=== PATIENT | female | born 1990 | race Two or more races ===

== ENCOUNTER 2024-03-09 14:21 | Inpatient (IN) | payer MEDICAID, OTHER ==
[~2024-03-09] VITALS: Ht 149.9 cm; Wt 70.0 kg
--- NOTE | 2024-03-09 14:55 | ED.PDOC ---
GI ASSESSMENT HPI Comments HPI: Poor Historian. 33 y.o female presents to the ED for a chief complaint of rectal pain associated with bleeding that started 3 days ago. Patient reports bleeding presented intermittently and mild but states today there was more blood output when using the restroom. Patient described pain as a burning sensation, states it worsens when applying pressure and is unable to sit down. Patient is unsure if she has a hemorrhoid. Denies any nausea, vomiting, diarrhea. Bowel movements have been normal and brown in coloration. Vital signs: BP: 121/75 HR: 79 Temp: SPO2: 100% RA RR: 16 Patient denies any allergies Past medical history: Gastritis Past surgical history: Endoscopy, and throat procedure REVIEW OF SYSTEMS: CONSTITUTIONAL: Denies acute: fever, diaphoresis, chills, generalized weakness. HEAD: Denies acute: headache, photophobia Eyes: Denies acute: Double vision, vision loss, eye pain, eye discharge. EARS: Denies acute: tinnitus, hearing loss, ear discharge, ear pain, THROAT: Denies acute: sore throat, swelling, difficulty swallowing , pain with swallowing, change in voice. NECK: Denies acute: neck pain, neck swelling, stiff neck. HEART: Denies acute : chest pain, palpitations, LUNGS: Denies acute: SOB, wheezing, cough, hemoptysis ABDOMEN: Denies acute: abdominal pain, Nausea, Vomiting, diarrhea, melena , hematemesis, SKIN: Denies acute: rash, redness, lesions, itchiness. EXTREMITIES: Denies acute: calf pain, numbness, tingling, weakness, denies pain in extremity. Denies acute: Low back pain. Neuro: Denies acute: focal neurological deficit, motor or sensory focal neurological deficit, tremors, seizure like activity, confusion, dizziness, change in mental status, loss of bowel or bladder function, cauda equina like symptoms. : Denies acute: dysuria, hematuria, flank pain, increase in urinary frequency. PSYCH: Denies acute: hallucination, suicidal ideation, homicidal ideation. FEMALE: Denies acute: abnormal vaginal bleeding, foul odor, unusual discharge. PHYSICAL EXAM: General: no acute distress, awake and alert. Head: normocephalic, atraumatic. Neck: supple, trachea is midline, no swelling. Throat: Normal phonation. Eyes:, no erythema, no purulent discharge, no proptosis, no icterus. Heart: regular rate, regular rhythm, no significant murmur appreciated. Lungs: no apparent respiratory distress, Able to speak in full sentences. No wheezing, no rhonchi, no crackles. No stridors Clear to auscultation bilaterally. Abdomen: non tender to palpation, non distended, soft, no guarding, no rebound, + bowel sounds. External inspection of the rectum/anus in the presence of a coal trammer nurse Aida: No apparent external hemorrhoids, no fissures appreciated, no erythema, no swelling. Palpation of the anal ring is tender to palpation. Neuro: Awake, Alert, oriented to name, self, situation, follows commands GCS=15. Speech is normal. Skin: no petechia, no purpura, no cyanosis, non-pale, not jaundice. Lower extremities: --no - Pitting edema no deformity, no focal swelling, no calf TTP. Makes eye contact. moves all four extremities. Face: no apparent facial droop. No CVA tenderness to percussion bilaterally. Ambulating in the ED independently. Ears: Normal appearing TM b/l, Stroke: finger to nose cerebellar testing is intact. No pronator drift. Symmetrical lead burner apprentice muscle strength b/l PERRLA, EOM-I CN 2-12 are grossly intact, Pedal pulses are palpable. No nystagmus. No nuchal rigidity, Kernig's sign, Brudzinski's sign, no meningeal signs. Chief Complaint: Rectal Pain Time Seen by MD: 14:42 Reviewed Notes: Nurses Notes, Medications, Allergies Allergies: Coded Allergies: NO KNOWN ALLERGIES (Unverified , 03/09/24) Information Source: Patient Mode of Arrival: Ambulatory Timing: Days (3) Past Medical History Past Medical History (Other): gastritis Surgical History: Surgical History (Other): endoscopy ROCK LOADER History: No Pertinent ROCK LOADER History Family History Family History: Reviewed,noncontributory to illness Social History Smoker: Non-Smoker Alcohol: Denies ETOH Use Drugs: Denies Drug Use Lives In: Home Was a procedure done? Was a procedure done?: No GI differential Dx Differential Diagnosis: Gastritis/PUD, Esophageal Varicies, Other (Diverticulitis, colitis, fistula, neoplasm, hemorrhoids, anal fissures, constipation, Crohn's disease, ulcerative colitis) Other Differential Diagnosis hemorrhoids X-Ray, Labs, Meds, VS Vital Signs Date Time Temp Pulse Resp B/P (MAP) Pulse Ox O2 Delivery O2 Flow Rate FiO2 03/09/24 17:05 73 18 114/62 (79) 100 03/09/24 14:35 98.8 79 16 121/75 (90) 100 Lab Test 03/09/24 15:07 Range/Units White Blood Count 6.9 4.4-10.8 10^3/uL Red Blood Count 4.11 4.0-5.20 10^6/uL Hemoglobin 12.5 12.2-16.2 g/dL Hematocrit 36.6 36.0-46.0 % Mean Corpuscular Volume 88.9 80.0-100.0 fL Mean Corpuscular Hemoglobin 30.4 28.0-32.0 pg Mean Corpuscular Hemoglobin Concent 34.2 32.0-36.0 g/dL Red Cell Distribution Width 13.2 11.8-14.3 % Platelet Count 221 140-450 10^3/uL Mean Platelet Volume 10.1 6.9-10.8 fL Neutrophils (%) (Auto) 62.3 37.0-80.0 % Lymphocytes (%) (Auto) 28.3 10.0-50.0 % Monocytes (%) (Auto) 8.2 0.0-12.0 % Eosinophils (%) (Auto) 0.8 0.0-7.0 % Basophils (%) (Auto) 0.4 0.0-2.0 % Neutrophils # (Auto) 4.3 1.6-8.6 10 ^3/uL Lymphocytes # (Auto) 2.0 0.4-5.4 10 ^3/uL Monocytes # (Auto) 0.6 0-1.3 10 ^3/uL Eosinophils # (Auto) 0.1 0-0.8 10 ^3/uL Basophils # (Auto) 0 0-0.2 10 ^3/uL Nucleated Red Blood Cells 0.1 % Sodium Level 137 136-145 mmol/L Potassium Level 3.7 3.5-5.1 mmol/L Chloride Level 105 98-107 mmol/L Carbon Dioxide Level 26 20-31 mmol/L Anion Gap 6 5-15 Blood Urea Nitrogen 9 9-23 mg/dL Creatinine 0.76 0.550-1.02 mg/dL Glomerular Filtration Rate Calc 105 >90 mL/min BUN/Creatinine Ratio 11.8 10.0-20.0 Serum Glucose 93 74-106 mg/dL Lactic Acid Level 1.3 0.4-2.0 mmol/L Calcium Level 9.1 8.7-10.4 mg/dL Total Bilirubin 0.7 0.2-1.0 mg/dL Aspartate Amino Transferase (AST) 16 13-40 U/L Alanine Aminotransferase (ALT) 26 7-40 U/L Alkaline Phosphatase 96 46-116 U/L C-Reactive Protein High Sensitivity 0.50 <1.0 mg/dL Total Protein 7.7 5.7-8.2 g/dL Albumin 4.5 3.2-4.8 g/dL Lipase 40 12-53 U/L Beta HCG, Quantitative < 0.0 L 1.5-4.2 mIU/mL [place] [id number] Ph: [phone] DIAGNOSTIC IMAGING Diagnostic Imaging Report : [id number] Signed PATIENT: JW VALENZUELA ACCT: [id number] UNIT: [id number] : 1990 LOC: ER ROOM / BED: / AGE / SEX: 33 / F ADM STATUS: REG ER SERVICE 1453 ORDERING PHYSICIAN: OLGA LIDIA FELICIANO DO PROCEDURE(s): ABPLIV - CT AB PEL WITH IV CON ONLY REASON: rectal pain,bleed ORDER NUMBER(s): [id number], ACCESSION NUMBER(s): [id number] CT OF THE ABDOMEN AND PELVIS WITH CONTRAST. HISTORY: rectal pain,bleed COMPARISON: At the time of this review, no prior studies are available for comparison. TECHNIQUE: Helical axial CT images of the abdomen and pelvis were obtained with intravenous contrast. Multiplanar reformats. One or more of the following radiation dose reduction techniques were used for this examination: automated exposure control, adjustment of the mA and/or kV according to patient size, use of iterative reconstruction technique. FINDINGS: Imaged lung bases are grossly clear. Liver: No discrete hepatic lesions identified. Gallbladder and biliary system: No sizable, radiopaque cholelithiasis or biliary ductal dilatation. Pancreas: Negative. Spleen: Negative. Adrenal Glands: Negative. Kidneys and collecting system: No hydroureteronephrosis. Retroperitoneum: No evidence of abdominal aortic aneurysm. Lymph nodes: No discretely enlarged lymph nodes identified. Bowel: No evidence of small-bowel obstruction. Normal caliber appendix. No free intraperitoneal air identified. Hyperdense noted within the anorectal canal. Stool noted throughout the colon and rectum suggesting constipation. Pelvis: Approximately 2 cm crenulated right adnexal cystic structure may represent a corpus luteal cyst. Questionable thickening versus underdistention of the urinary bladder. Osseous structures: No destructive osseous lesions identified. IMPRESSION: Hyperdense material noted within the anorectal canal. This may reflect pooled blood products or possible hemorrhoidal bleeding. Recommend further workup as clinically indicated. Probable right ovarian corpus luteal cyst. This can be further evaluated with ultrasound. Questionable thickening versus underdistention of the urinary bladder. Please correlate to exclude cystitis. Stool noted throughout the colon and rectum suggesting constipation. ATED BY: BENI CORDOBA MD DICTATED DATE/TIME: 03/09/241922 SIGNED BY: BENI CORDOBA MD SIGNED DATE/TIME: 03/09/241922 CC: Time of 1ST Reevaluation: 14:50 Reevaluation 1ST: Unchanged Patient Education/Counseling: Diagnosis, Treatment Family Education/Counseling: No Family Present Comments Patient presented with the above HPI.---rectal bleeding---workup was initiated. patient was found with the above mentioned diagnosis. Patient ED course and VS have been stabilized. Patient has been reassessed in the ED and remained in a stable condition. Pertinent incidental findings were discussed with the patient and/or family. Patient/family voices understanding and is agreeable with plan. Patient has been observed in the ED adequate length of time to insure improvement/stability. patient was admitted to the medicine team for further evaluation and treatment of their presentation. All the reports of any imaging studies that were ordered by myself were reviewed by myself. Departure 1 Departure Time of Disposition: 18:07 Impression: Primary Impression: Rectal or anal pain Additional Impressions: Rectal bleeding Hemorrhoids Disposition: ADMITTED INPATIENT Admit to: Tele Condition: Guarded Discharged With: Self Critical Care Note Critical Care Time?: No I personally scribed for OLGA LIDIA FELICIANO DO ([email or web address]) on 03/09/24 at 14:55. Electronically submitted by Sandra Steve ([facility]). I personally scribed for OLGA LIDIA FELICIANO DO ([email or web address]) on 03/09/24 at 19:51. Electronically submitted by Sandra Steve ([facility]). OLGA LIDIA FELICIANO DO Mar 09, 2024 14:55
[2024-03-09 15:57] LABS: Basophils # (auto) 0 10 ^3/uL (0-0.2); Basophils % (auto) 0.4 % (0.0-2.0); Eosinophils # (auto) 0.1 10 ^3/uL (0-0.8); Eosinophils % (auto) 0.8 % (0.0-7.0); Hematocrit 36.6 % (36.0-46.0); Hemoglobin 12.5 g/dL (12.2-16.2); Lymphocytes % (auto) 28.3 % (10.0-50.0); Mean Corpuscular Hemoglobin 30.4 pg (28.0-32.0); Mean Corpuscular Hgb Conc. 34.2 g/dL (32.0-36.0); Mean Corpuscular Volume 88.9 fL (80.0-100.0); Monocytes # (auto) 0.6 10 ^3/uL (0-1.3); Monocytes % (auto) 8.2 % (0.0-12.0); Neutrophils # (auto) 4.3 10 ^3/uL (1.6-8.6); Neutrophils % (auto) 62.3 % (37.0-80.0); Nucleated Red Blood Cells % 0.1 %; Platelet Count (auto) 221 10^3/uL (140-450); Red Blood Cells 4.11 10^6/uL (4.0-5.20); Red Cell Distribution Width 13.2 % (11.8-14.3); White Blood Cell 6.9 10^3/uL (4.4-10.8)
[2024-03-09 16:15] LABS: Alanine Aminotransferase 26 U/L (7-40); Alkaline Phosphatase 96 U/L (46-116); Anion Gap 6 (5-15); BUN/Creatinine Ratio 11.8 (10.0-20.0); Blood Urea Nitrogen 9 mg/dL (9-23); Calcium 9.1 mg/dL (8.7-10.4); Carbon Dioxide 26 mmol/L (20-31); Chloride 105 mmol/L (98-107); Glucose 93 mg/dL (74-106); Potassium 3.7 mmol/L (3.5-5.1); Sodium 137 mmol/L (136-145)
[2024-03-09 16:16] LABS: Albumin 4.5 g/dL (3.2-4.8); Aspartate Aminotransferase 16 U/L (13-40); Bilirubin, Total 0.7 mg/dL (0.2-1.0); Total Protein 7.7 g/dL (5.7-8.2)
[2024-03-09 16:30] LABS: Lipase 40 U/L (12-53)
[2024-03-09] MEDS: IOHEXOL 300 MG/ML 100ML BOTTLE IJ ONE (18:10)
--- NOTE | 2024-03-09 19:26 | DVH ---
CT OF THE ABDOMEN AND PELVIS WITH CONTRAST. HISTORY: rectal pain,bleed COMPARISON: At the time of this review, no prior studies are available for comparison. TECHNIQUE: Helical axial CT images of the abdomen and pelvis were obtained with intravenous contrast. Multiplanar reformats. One or more of the following radiation dose reduction techniques were used fo r this examination: automated exposure control, adjustment of the mA and/or kV according to patient s ize, use of iterative reconstruction technique. FINDINGS: Imaged lung bases are grossly clear. Liver: No discrete hepatic lesions identified. Gallbladder and biliary system: No sizable, radiopaque cholelithiasis or biliary ductal dilatation. Pancreas: Negative. Spleen: Negative. Adrenal Glands: Negative. Kidneys and collecting system: No hydroureteronephrosis. Retroperitoneum: No evidence of abdominal aortic aneurysm. Lymph nodes: No discretely enlarged lymph nodes identified. Bowel: No evidence of small-bowel obstruction. Normal caliber appendix. No free intraperitoneal air i dentified. Hyperdense noted within the anorectal canal. Stool noted throughout the colon and rectum s uggesting constipation. Pelvis: Approximately 2 cm crenulated right adnexal cystic structure may represent a corpus luteal cy st. Questionable thickening versus underdistention of the urinary bladder. Osseous structures: No destructive osseous lesions identified. IMPRESSION: Hyperdense material noted within the anorectal canal. This may reflect pooled blood products or poss ible hemorrhoidal bleeding. Recommend further workup as clinically indicated. Probable right ovarian corpus luteal cyst. This can be further evaluated with ultrasound. Questionable thickening versus underdistention of the urinary bladder. Please correlate to exclude cy stitis. Stool noted throughout the colon and rectum suggesting constipation.
[2024-03-09] MEDS ORDERED: MORPHINE SULFATE INJ 2 MG/ml SYRG IV PRN ×2 (20:30)
[2024-03-09] MEDS ORDERED: NITROGLYCERIN 0.4 MG SL TAB SL PRN (20:30)
[2024-03-09] MEDS ORDERED: ONDANSETRON HCL 4 MG/2 ML VIAL IV PRN (20:30)
[2024-03-09] MEDS ORDERED: ACETAMINOPHEN 325 MG TAB PO PRN (20:30)
[2024-03-09 20:51] LABS: Basophils # (auto) 0 10 ^3/uL (0-0.2); Basophils % (auto) 0.5 % (0.0-2.0); Eosinophils # (auto) 0.1 10 ^3/uL (0-0.8); Eosinophils % (auto) 0.8 % (0.0-7.0); Hematocrit 40.4 % (36.0-46.0); Hemoglobin 13.8 g/dL (12.2-16.2); Lymphocytes # (auto) 2.4 10 ^3/uL (0.4-5.4); Lymphocytes % (auto) 33.3 % (10.0-50.0); Mean Corpuscular Hemoglobin 30.4 pg (28.0-32.0); Mean Corpuscular Hgb Conc. 34.2 g/dL (32.0-36.0); Mean Corpuscular Volume 88.7 fL (80.0-100.0); Monocytes # (auto) 0.5 10 ^3/uL (0-1.3); Monocytes % (auto) 7.5 % (0.0-12.0); Neutrophils # (auto) 4.1 10 ^3/uL (1.6-8.6); Neutrophils % (auto) 57.9 % (37.0-80.0); Nucleated Red Blood Cells % 0.1 %; Platelet Count (auto) 216 10^3/uL (140-450); Red Blood Cells 4.55 10^6/uL (4.0-5.20); Red Cell Distribution Width 13.4 % (11.8-14.3); White Blood Cell 7.1 10^3/uL (4.4-10.8)
[2024-03-09 21:12] LABS: Alanine Aminotransferase 26 U/L (7-40); Albumin 4.9 g/dL (3.2-4.8); Alkaline Phosphatase 103 U/L (46-116); Anion Gap 5 (5-15); Aspartate Aminotransferase 18 U/L (13-40); BUN/Creatinine Ratio 11.4 (10.0-20.0); Bilirubin, Total 0.9 mg/dL (0.2-1.0); Blood Urea Nitrogen 8 mg/dL (9-23); Calcium 9.3 mg/dL (8.7-10.4); Carbon Dioxide 24 mmol/L (20-31); Chloride 106 mmol/L (98-107); Glucose 84 mg/dL (74-106); Potassium 3.6 mmol/L (3.5-5.1); Sodium 135 mmol/L (136-145)
[2024-03-09 21:13] LABS: Total Protein 7.8 g/dL (5.7-8.2)
[2024-03-09] MEDS: SODIUM CHLOR 0.9% PF (SALINE LOCK) 10ML VIAL/SYR IV SCH (22:08)
--- NOTE | 2024-03-09 22:41 | DVHHPRES ---
History of Present Illness Resident Creating Document: CLARICE CHAVARRIA RESIDENT History of Present Illness JW VALENZUELA is a 33 years old female with a PMH of cholelithiasis, gastritis presented to the ED with the chief complaints of rectal pain and rectal bleeding since 1 week prior to admission. Patient reported she has been having burning rectal pain while defecating associated with fresh red blood in stools , unable to sit, worsened when applying pressure. On my assessment patient denies nausea, vomiting, abdominal pain, diarrhea, fever, chills, and other associated symptoms Past Medical History Gastritis and cholelithiasis Past Surgical History Endoscopic, 2, throat procedure Family History: None Past Social History Lives with the . Occasional alcohol abuse but denies smoking and other drug abuse Review of Systems Constitutional: No: Fever, Chills, Sweats, Weakness, Malaise, Other Eyes: No: Pain, Vision change, Conjunctivae inflammation, Eyelid inflammation, Other, Redness ENT: No: Ear pain, Ear discharge, Nose pain, Nose discharge, Nose congestion, Mouth pain, Mouth swelling, Throat pain, Throat swelling, Other Respiratory: No: Cough, Dry, Shortness of breath, SOB with excertion, Wheezing, Hemoptysis, Pleuritic Pain, Sputum, Wheezing, Other Cardiovascular: No: Chest Pain, Palpitations, Orthopnea, Paroxysmal Noc. Dyspnea, Edema, Lt Headedness, Other Gastrointestinal: No: Nausea, Vomiting, Abdominal Pain, Diarrhea, Constipation, Melena, Hematochezia, Other Genitourinary: Other (Rectal bleeding and rectal pain) Musculoskeletal: No: other, neck pain, shoulder pain, arm pain, back pain, hand pain, leg pain, foot pain Skin: No: Rash, Lesions, Jaundice, Bruising, Other Neurological: No: Weakness, Numbness, Incoordination, Change in speech, Confusion, Seizures, Other Allergies: Coded Allergies: NO KNOWN ALLERGIES (Unverified , 03/09/24) Medications Current Medications Medications Dose Ordered Sig/Alize Route Start Time Stop Time Status Last Admin Dose Admin Sodium Chloride 10 ml Q8HR IV 03/09/24 22:00 03/09/24 22:08 10 ML Ondansetron HCl 4 mg Q4HP PRN IV 03/09/24 20:30 Acetaminophen 650 mg Q6HP PRN PO 03/09/24 20:30 Morphine Sulfate 2 mg Q4HPRN PRN IV 03/09/24 20:30 Nitroglycerin 0.4 mg Q5MINP PRN SL 03/09/24 20:30 Morphine Sulfate 2 mg Q30M PRN IV 03/09/24 20:30 Exam Vital Signs Vital Signs Date Time Temp Pulse Resp B/P (MAP) Pulse Ox O2 Delivery O2 Flow Rate FiO2 03/09/24 21:52 98.3 84 16 99/52 (68) 99 98.3 Exam Pt is lying on bed General Appearance: Alert, Oriented X3, Cooperative, Not in acute distress HEENT: Atraumatic, Mucous membranes moist/pink Respiratory: Clear to auscultation, Normal air movement, No added sounds Cardiovascular: Regular rate, Normal S1, Normal S2, No murmurs Abdominal: Active bowel sounds, Soft, no distention, no tenderness Extremities: No edema, Normal pulses, No tenderness/swelling Skin: No Significant rash, except past surgical scars Neuro: Normal speech, sensorimotor deficits none Psych/Mental Status: Mental status NL, Mood NL Nurse was there as tatine during examination Labs/Xrays Labs Test 03/09/24 20:37 03/09/24 15:07 Range/Units White Blood Count 7.1 4.4-10.8 10^3/uL Red Blood Count 4.55 4.0-5.20 10^6/uL Hemoglobin 13.8 12.2-16.2 g/dL Hematocrit 40.4 # 36.0-46.0 % Mean Corpuscular Volume 88.7 80.0-100.0 fL Mean Corpuscular Hemoglobin 30.4 28.0-32.0 pg Mean Corpuscular Hemoglobin Concent 34.2 32.0-36.0 g/dL Red Cell Distribution Width 13.4 11.8-14.3 % Platelet Count 216 140-450 10^3/uL Mean Platelet Volume 9.8 6.9-10.8 fL Neutrophils (%) (Auto) 57.9 37.0-80.0 % Lymphocytes (%) (Auto) 33.3 10.0-50.0 % Monocytes (%) (Auto) 7.5 0.0-12.0 % Eosinophils (%) (Auto) 0.8 0.0-7.0 % Basophils (%) (Auto) 0.5 0.0-2.0 % Neutrophils # (Auto) 4.1 1.6-8.6 10 ^3/uL Lymphocytes # (Auto) 2.4 0.4-5.4 10 ^3/uL Monocytes # (Auto) 0.5 0-1.3 10 ^3/uL Eosinophils # (Auto) 0.1 0-0.8 10 ^3/uL Basophils # (Auto) 0 0-0.2 10 ^3/uL Nucleated Red Blood Cells 0.1 % Sodium Level 135 L 136-145 mmol/L Potassium Level 3.6 3.5-5.1 mmol/L Chloride Level 106 98-107 mmol/L Carbon Dioxide Level 24 20-31 mmol/L Anion Gap 5 5-15 Blood Urea Nitrogen 8 L 9-23 mg/dL Creatinine 0.70 0.550-1.02 mg/dL Glomerular Filtration Rate Calc 116 >90 mL/min BUN/Creatinine Ratio 11.4 10.0-20.0 Serum Glucose 84 74-106 mg/dL Calcium Level 9.3 8.7-10.4 mg/dL Total Bilirubin 0.9 0.2-1.0 mg/dL Aspartate Amino Transferase (AST) 18 13-40 U/L Alanine Aminotransferase (ALT) 26 7-40 U/L Alkaline Phosphatase 103 46-116 U/L Total Protein 7.8 5.7-8.2 g/dL Albumin 4.9 H 3.2-4.8 g/dL Lactic Acid Level 1.3 0.4-2.0 mmol/L C-Reactive Protein High Sensitivity 0.50 <1.0 mg/dL Lipase 40 12-53 U/L Beta HCG, Quantitative < 0.0 L 1.5-4.2 mIU/mL Assessment/Plan Assessment/Plan # Acute lower GI bleed # hematochezia likely annual fissure versus hemorrhoids # constipation -CT abdominal pelvis showed findings suggestive of possible hemorrhoidal bleeding -patient was counseled regarding dietary modifications -monitor lab for anemia -consider GI sales representative consultant evaluation -ordered lidocaine ointment and Colace # gastritis -Protonix No VTE PPX as patient is ambulatory Protonix High fibre diet Goals of care discussed with the patient for more than 27 minutes: Full code status Case management discussed with Dr. Osorio, patient's nurse Plan discussed with: Patient My Orders Orders - CLARICE CHAVARRIA RESIDENT Procedure Category Date Status Time Admit ADMIT 03/09/24 Transmitted 20:22 Allergies JUDD 03/09/24 In Process 20:22 Code Status CODE 03/09/24 Transmitted 20:22 Sodium Chloride Lock PHA 03/09/24 In Process (Saline Lock Ns) 22:00 Ondansetron Hcl PHA 03/09/24 In Process (Zofran) 20:30 Complete Blood Count LAB 03/10/24 Verified 04:00 Comprehensive LAB 03/10/24 Verified Metabolic Panel 04:00 Acetaminophen Tablet PHA 03/09/24 In Process (Tylenol Tablet) 20:30 Clear Liq Diet DIET 03/10/24 Transmitted Breakfast Morphine Sulfate PHA 03/09/24 In Process Injection 20:30 Nitroglycerin PHA 03/09/24 In Process Sublingual (Ntrostat 20:30 Morphine Sulfate PHA 03/09/24 In Process Injection 20:30 Oxygen By Nasal RT 03/09/24 Transmitted Cannula 20:22 Stat Ekg For Chest JUDD 03/09/24 In Process Pain 20:22 Notify Of Changes [facility] 03/09/24 In Process From Base 20:22 Driver Starting Gate For [facility] 03/09/24 In Process 24 Hours 20:22 Emergency Dysrhythmia [facility] 03/09/24 In Process Protocol 20:22 Rhythm Strips Once [facility] 03/09/24 In Process Every Shift 20:22 Iron Panel LAB 03/09/24 Logged 22:31 Hemoglobin A1c LAB 03/09/24 Logged 22:31 Drug Screen LAB 03/09/24 Logged 22:31 Vitamin D, 25-Hydroxy LAB 03/09/24 Logged 22:31 Vitamin B12 LAB 03/09/24 Logged 22:31 Thyroid Stimulating LAB 03/09/24 In Process Hormone 22:31 Stool Occult Blood LAB 03/10/24 Verified 04:00 PTPTT LAB 03/10/24 Verified 04:00 CLARICE CHAVARRIA RESIDENT Mar 09, 2024 22:41
[2024-03-09] MEDS ORDERED: DOCUSATE SOD 100 MG CAP PO PRN (22:45)
[2024-03-09] MEDS: LIDOCAINE HCL 5 % TOP OINT 35 GM TOP ONE (22:45)
[2024-03-09 22:52] LABS: % Iron Saturation 16.7 % (15-50)
[2024-03-09] MEDS: PANTOPRAZOLE 40 MG/10 ML VIAL INJ IV ONE (23:30)
[2024-03-09 23:43] VITALS: BP 106/60; PULSE 91; RESP 18; TEMP 106; O2SAT 99
[2024-03-10] VITALS (8 sets, daily range): BP systolic 94–109; BP diastolic 44–68; PULSE 68–78; RESP 16–18; TEMP 97.9–99.1; O2SAT 97–99
[2024-03-10 03:13] LABS: Urine Bacteria FEW /hpf (None Seen); Urine Blood Negative /uL (Negative); Urine Clarity Clear (Clear); Urine Color Light-Yellow (Yellow); Urine Mucus FEW (None Seen); Urine Protein, UAD TRACE (Negative); Urine Urobilinogen Normal (Negative); Urine WBC <1 /hpf (0 - 5); Urine pH 5.5 (5.0-9.0)
[2024-03-10 03:14] LABS: Amphetamine Screen, Urine Neg (NEGATIVE); Barbiturate Scree,Urine Neg (NEGATIVE); Benzodiazephine Screen, Urine Neg (NEGATIVE); Cocaine Screen, Urine Neg (NEGATIVE); Opiate Scree,Urine Neg (NEGATIVE); Phencyclidine Screen, Urine Neg (NEGATIVE)
[2024-03-10 03:15] LABS: Cannabinoid Screen, Urine Neg (NEGATIVE)
[2024-03-10 03:16] LABS: Urine Specific Gravity 1.035 (1.001-1.035)
[2024-03-10] MEDS: POLYETHYLENE GLYCOL 17 GM PWDR PO ONE (05:42)
[2024-03-10] MEDS ORDERED: LIDOCAINE HCL 5 % TOP OINT 35 GM TOP PRN (07:00)
--- NOTE | 2024-03-10 10:04 | DVHPNRES ---
Progress Note Date Seen: Mar 10, 2024 Resident Creating Document: EDMAR ALLAN RESIDENT Medical Necessity Reason Pt with a Central, PICC or Fol: No Subjective Review of Systems This is a 33-year-old female patient with PMHx of gallbladder sludge, gastritis diagnosed 3 weeks back on endoscopy who presented to the ER with a chief complaint of rectal pain and rash bleeding per rectum for the past 1 week. Patient reports she has a long history of constipation for which she uses stool softeners, reports that over the past week she has been experiencing pain on defecation associated with fresh blood per rectum at the end of the stool. Says that the stool is not mixed with blood. Also reports a something comes out of the anus, but goes back on its own. She feels discomfort while sitting. Denies fever, chills, nausea, vomiting, diarrhea, abdominal pain, chest pain, shortness of breath, dysuria, frequency. Past surgical history Tubal ligation and a thyroid cyst removal in 2007 Social history Lives with and son Denies smoking, drinks socially, denies illicit drug use Patient seen and examined at bedside. Examination is unremarkable. No abdominal tenderness. Objective vital signs Vital Sign Date Time Temp Pulse Resp B/P (MAP) Pulse Ox O2 Delivery O2 Flow Rate FiO2 03/10/24 08:43 98.3 76 16 98/68 (78) 97 98.3 03/10/24 02:38 Room Air* 0 21 Total Intake and Output 03/09/24 03/09/24 03/10/24 15:00 23:00 07:00 Intake Total 50 ml Balance 50 ml medications Current Medications Medications Dose Ordered Sig/Alize Route Start Time Stop Time Status Last Admin Dose Admin Sodium Chloride 10 ml Q8HR IV 03/09/24 22:00 03/10/24 05:44 10 ML Ondansetron HCl 4 mg Q4HP PRN IV 03/09/24 20:30 Acetaminophen 650 mg Q6HP PRN PO 03/09/24 20:30 Morphine Sulfate 2 mg Q4HPRN PRN IV 03/09/24 20:30 Pantoprazole Sodium 40 mg DAILY IV 03/10/24 10:00 Docusate Sodium 100 mg BIDPRN PRN PO 03/09/24 22:45 Lidocaine HCl 1 applic Q8HP PRN TOP 03/10/24 07:00 Polyethylene Glycol 17 gm DAILY PO 03/10/24 10:00 Ergocalciferol 50,000 unit Q7D PO 03/10/24 07:45 Examination Young female patient lying in bed, in no acute distress General: Obese, afebrile, palor, mucosae are moist Cardiovascular: Regular S1 and S2. No murmurs, gallops or rubs. No JVD elevation. No pedal edema Respiratory: Normal B/L air entry on room air. Clear lung sounds on auscultation Abdomen: Soft, nontender, nondistended, normoactive bowel sounds, no rebound tenderness, no organomegaly, no masses Genitourinary: Deferred MSK/skin: Mobilizes 4 limbs. Skin is dry and warm Neurological: No motor, no sensitive deficits, normal speech. Pupils are isocoric and reactive. Psych/Mental Status: A/Ox4 laboratory and microbiology Laboratory Tests 03/09/24 20:37 Test 03/09/24 20:37 Range/Units Serum Glucose 84 74-106 mg/dL Labs and/or images reviewed: Labs reviewed by me, Image(s) reviewed by me Problem List/Assessment/Plan Problem List/Assessment/Plan Fresh red bleeding per rectum secondary to possible internal hemorrhoids Ruled out anal fissure Febrile episode secondary to above GI consulted - recommended Local anorectal hemorrhoidal care with Proctocream or Anusol HC rectal suppositories. Xylocaine 5% apply per rectum q.8 hours as needed as needed MiraLax 17 g p.o. as needed as needed History of gallbladder sludge Gastritis Continue pantoprazole 40 mg daily History of thyroid cyst removal TSH 1.7 Vitamin-D insufficiency Supplemented Diet Clear liquid Plan discussed with patient in which all questions have been answered Goals of care discussed with the patient for more than 20 minutes, full code status Case discussed with Dr. Osorio. Plan discussed with: Patient My Orders My Orders Orders - EDMAR ALLAN Procedure Category Date Status Time Ergocalciferol PHA 03/10/24 In Process (Vitamin D 50,000 07:45 Covid19 Antigen Adri LAB 03/10/24 Logged Potassium Effervesent PHA 03/10/24 Logged Tab (Klor-Con/Ef) 10:00 EDMAR ALLAN RESIDENT Mar 10, 2024 10:04
[2024-03-10] MEDS: POLYETHYLENE GLYCOL 17 GM PWDR PO SCH (10:23)
[2024-03-10] MEDS: PANTOPRAZOLE 40 MG/10 ML VIAL INJ IV SCH (10:23)
[2024-03-10] MEDS: ERGOCALCIFEROL 50,000 UNIT(1.25MG) CAP PO SCH (10:25)
[2024-03-10] MEDS: CYANOCOBALAMIN (B-12) 1000 MCG/1 ML VIAL IM ONE (10:25)
[2024-03-10] MEDS: SODIUM CHLORIDE 0.9% 500 ML IV ONE ×2 (10:26→10:30)
--- NOTE | 2024-03-10 10:44 | DVHINCON2 ---
Date of service: Mar 10, 2024 Referring Physician Dami Rosa Reason for Consultation Rectal bleeding and pain due to hemorrhoids History of Present Illness 3 years old female with a PMH of cholelithiasis, gastritis presented to the ED with the chief complaints of rectal pain and rectal bleeding since 1 week prior to admission. Patient reported she has been having burning rectal pain while defecating associated with fresh red blood in stools , unable to sit, worsened when applying pressure. On my assessment patient denies nausea, vomiting, abdominal pain, diarrhea, fever, chills, and other associated symptoms Past Medical History Past Medical History Gastritis and cholelithiasis Past Surgical History Past Surgical History Endoscopic, 2, throat procedure Family History: Diabetes mellitus G8 FATHER Allergies: Coded Allergies: NO KNOWN ALLERGIES (Unverified , 03/09/24) Current Medications Current Medications Medications (Trade) Dose Ordered Sig/Alize Route PRN Reason Start Time Stop Time Status Last Admin Sodium Chloride (Saline Lock Ns) 10 ml Q8HR IV 03/09/24 22:00 03/10/24 10:26 Ondansetron HCl (Zofran) 4 mg Q4HP PRN IV NAUSEA / VOMITING 03/09/24 20:30 Acetaminophen (Tylenol Tablet) 650 mg Q6HP PRN PO PAIN SCALE 1-3 OR TEMP>100.4 03/09/24 20:30 Morphine Sulfate 2 mg Q4HPRN PRN IV SEVERE PAIN (7-10 PAIN SCALE) 03/09/24 20:30 Nitroglycerin (Ntrostat Sublingual) 0.4 mg Q5MINP PRN SL FOR CHEST PAIN 03/09/24 20:30 03/10/24 09:58 DC Morphine Sulfate 2 mg Q30M PRN IV FOR CHEST PAIN 03/09/24 20:30 03/10/24 08:13 DC Pantoprazole Sodium (Protonix) 40 mg DAILY IV 03/10/24 10:00 03/10/24 10:23 Docusate Sodium (Colace Capsule) 100 mg BIDPRN PRN PO FOR CONSTIPATION 03/09/24 22:45 Lidocaine HCl (Xylocaine 5% Topical Ointment) 1 applic Q8HP PRN TOP PAIN SCALE 4-6 OR TEMP>100.4 03/10/24 07:00 Polyethylene Glycol (Miralax 17GM Powder) 17 gm DAILY PO 03/10/24 10:00 03/10/24 10:23 Ergocalciferol (Vitamin D 50,000 Unit) 50,000 unit Q7D PO 03/10/24 07:45 03/10/24 10:25 Vital Signs Vital Signs Date Time Temp Pulse Resp B/P (MAP) Pulse Ox O2 Delivery O2 Flow Rate FiO2 03/10/24 08:43 98.3 76 16 98/68 (78) 97 98.3 03/10/24 02:38 Room Air* 0 21 Physical Exam General Appearance: Alert, Oriented X3, Cooperative, Not in acute distress HEENT: Atraumatic, Mucous membranes moist/pink Respiratory: Clear to auscultation, Normal air movement, No added sounds Cardiovascular: Regular rate, Normal S1, Normal S2, No murmurs Abdominal: Active bowel sounds, Soft, no distention, no tenderness Extremities: No edema, Normal pulses, No tenderness/swelling Skin: No Significant rash, except past surgical scars Neuro: Normal speech, sensorimotor deficits none Psych/Mental Status: Mental status NL, Mood NL Nurse was there as sharperone during examination Labs/Diagnostic Data Labs Test 03/10/24 07:00 03/10/24 02:40 03/09/24 20:37 03/09/24 15:07 Range/Units Stool Occult Blood Negative Negative Stool Occult Blood Sample #3 Negative Urine Color Light-yellow Yellow Urine Clarity Clear Clear Urine pH 5.5 5.0-9.0 Urine Specific [place] 1.035 1.001-1.035 Urine Protein Trace H Negative Urine Ketones Trace Negative Urine Blood Negative Negative /uL Urine Nitrite Negative Negative Urine Bilirubin Negative Negative Urine Urobilinogen Normal Negative mg/dL Urine Leukocyte Esterase Negative Negative /uL Urine RBC 2 0 - 4 /hpf Urine WBC <1 0 - 5 /hpf Urine Squamous Epithelial Cells Few <5 /hpf Urine Bacteria Few H None Seen /hpf Urine Mucus Few None Seen Urine Glucose Normal Normal mg/dL Urine Opiates Screen Neg NEGATIVE Urine Fentanyl Screen Neg NEGATIVE Urine Barbiturates Screen Neg NEGATIVE Urine Phencyclidine Screen Neg NEGATIVE Urine Amphetamines Screen Neg NEGATIVE Urine Benzodiazepines Screen Neg NEGATIVE Urine Cocaine Screen Neg NEGATIVE Urine Cannabinoids Screen Neg NEGATIVE White Blood Count 7.1 4.4-10.8 10^3/uL Red Blood Count 4.55 4.0-5.20 10^6/uL Hemoglobin 13.8 12.2-16.2 g/dL Hematocrit 40.4 # 36.0-46.0 % Mean Corpuscular Volume 88.7 80.0-100.0 fL Mean Corpuscular Hemoglobin 30.4 28.0-32.0 pg Mean Corpuscular Hemoglobin Concent 34.2 32.0-36.0 g/dL Red Cell Distribution Width 13.4 11.8-14.3 % Platelet Count 216 140-450 10^3/uL Mean Platelet Volume 9.8 6.9-10.8 fL Neutrophils (%) (Auto) 57.9 37.0-80.0 % Lymphocytes (%) (Auto) 33.3 10.0-50.0 % Monocytes (%) (Auto) 7.5 0.0-12.0 % Eosinophils (%) (Auto) 0.8 0.0-7.0 % Basophils (%) (Auto) 0.5 0.0-2.0 % Neutrophils # (Auto) 4.1 1.6-8.6 10 ^3/uL Lymphocytes # (Auto) 2.4 0.4-5.4 10 ^3/uL Monocytes # (Auto) 0.5 0-1.3 10 ^3/uL Eosinophils # (Auto) 0.1 0-0.8 10 ^3/uL Basophils # (Auto) 0 0-0.2 10 ^3/uL Nucleated Red Blood Cells 0.1 % Sodium Level 135 L 136-145 mmol/L Potassium Level 3.6 3.5-5.1 mmol/L Chloride Level 106 98-107 mmol/L Carbon Dioxide Level 24 20-31 mmol/L Anion Gap 5 5-15 Blood Urea Nitrogen 8 L 9-23 mg/dL Creatinine 0.70 0.550-1.02 mg/dL Glomerular Filtration Rate Calc 116 >90 mL/min BUN/Creatinine Ratio 11.4 10.0-20.0 Serum Glucose 84 74-106 mg/dL Calcium Level 9.3 8.7-10.4 mg/dL Total Bilirubin 0.9 0.2-1.0 mg/dL Aspartate Amino Transferase (AST) 18 13-40 U/L Alanine Aminotransferase (ALT) 26 7-40 U/L Alkaline Phosphatase 103 46-116 U/L Total Protein 7.8 5.7-8.2 g/dL Albumin 4.9 H 3.2-4.8 g/dL Thyroid Stimulating Hormone (TSH) 1.79 0.55-4.78 uIU/mL Hemoglobin A1c 5.0 <5.7 % A1C Lactic Acid Level 1.3 0.4-2.0 mmol/L Iron Level 72 50-170 ug/dL Total Iron Binding Capacity 432 H 250-425 ug/dL Percent Iron Saturation 16.7 15-50 % C-Reactive Protein High Sensitivity 0.50 <1.0 mg/dL Lipase 40 12-53 U/L Vitamin B12 Level 394 211-911 pg/mL Vitamin D 25-Hydroxy 30.8 30.0-100 ng/mL Beta HCG, Quantitative < 0.0 L 1.5-4.2 mIU/mL CT SCAN ABD PELVIS IMPRESSION: Hyperdense material noted within the anorectal canal. This may reflect pooled blood products or possible hemorrhoidal bleeding. Recommend further workup as clinically indicated. Probable right ovarian corpus luteal cyst. This can be further evaluated with ultrasound. Questionable thickening versus underdistention of the urinary bladder. Please correlate to exclude cystitis. Stool noted throughout the colon and rectum suggesting constipation. Problems(with codes): (1) Rectal or anal pain (2) Rectal bleeding (3) Hemorrhoids Plan/Recommendation Plan Increase fluid and fiber intake Stool softeners MiraLax 17 g p.o. as needed as needed Local anorectal hemorrhoidal care with Proctocream or Anusol HC rectal suppositories Xylocaine 5% apply per rectum q.8 hours as needed as needed Patient would like a note off from work for today and on Wednesday so she can have time to heal Outpatient follow up with me for ongoing medical management possible colonoscopy and if symptoms persist consider elective hemorrhoidectomy Plan discussed with: Patient JOVANI IBRAHIM MD Mar 10, 2024 10:44
--- NOTE | 2024-03-10 11:11 | DVH ---
INDICATION: pain TECHNIQUE: Multiple real-time grayscale transabdominal sonographic images along with color and duplex Doppler of the uterus and ovaries were obtained. COMPARISON: None FINDINGS: The uterus measures 10 x 5 x 5 cm. The endometrial stripe measures 1.3 cm. The right ovary measures 3 x 3 x 2 cm. The left ovary measures 3 x 2 x 2 cm. Subsequent color and duplex Doppler interrogation of the ovaries demonstrated symmetric vascular flow to both ovaries, though this does not exclude the possibility of torsion due to the dual blood suppl y. IMPRESSION: There is a corpus luteal cyst seen within the right ovary measuring 2 cm.
[2024-03-10] MEDS: POTASSIUM EFFERVESENT TAB 25 MEQ PO ONE (11:29)
[2024-03-10 12:18] LABS: Basophils # (auto) 0 10 ^3/uL (0-0.2); Basophils % (auto) 0.2 % (0.0-2.0); Eosinophils # (auto) 0 10 ^3/uL (0-0.8); Eosinophils % (auto) 0.9 % (0.0-7.0); Hematocrit 37.3 % (36.0-46.0); Hemoglobin 12.2 g/dL (12.2-16.2); Lymphocytes # (auto) 1.9 10 ^3/uL (0.4-5.4); Lymphocytes % (auto) 34.6 % (10.0-50.0); Mean Corpuscular Hemoglobin 29.9 pg (28.0-32.0); Mean Corpuscular Hgb Conc. 32.6 g/dL (32.0-36.0); Mean Corpuscular Volume 91.8 fL (80.0-100.0); Monocytes # (auto) 0.6 10 ^3/uL (0-1.3); Monocytes % (auto) 11.1 % (0.0-12.0); Neutrophils # (auto) 2.9 10 ^3/uL (1.6-8.6); Neutrophils % (auto) 53.2 % (37.0-80.0); Nucleated Red Blood Cells % 0.1 %; Platelet Count (auto) 196 10^3/uL (140-450); Red Blood Cells 4.06 10^6/uL (4.0-5.20); Red Cell Distribution Width 13.3 % (11.8-14.3); White Blood Cell 5.5 10^3/uL (4.4-10.8)
[2024-03-10 12:32] LABS: INR 1.02 (0.9-1.15); Partial Thromboplastin Time 26.7 SEC (24.5-34.5); Prothrombin Time 10.8 sec (9.3-11.8)
[2024-03-10 12:40] LABS: Alanine Aminotransferase 24 U/L (7-40); Albumin 3.9 g/dL (3.2-4.8); Alkaline Phosphatase 81 U/L (46-116); Anion Gap 5 (5-15); Aspartate Aminotransferase 19 U/L (13-40); BUN/Creatinine Ratio 7.5 (10.0-20.0); Bilirubin, Total 0.8 mg/dL (0.2-1.0); Blood Urea Nitrogen 5 mg/dL (9-23); Calcium 8.7 mg/dL (8.7-10.4); Carbon Dioxide 23 mmol/L (20-31); Chloride 111 mmol/L (98-107); Glucose 81 mg/dL (74-106); Potassium 4.2 mmol/L (3.5-5.1); Sodium 139 mmol/L (136-145); Total Protein 6.8 g/dL (5.7-8.2)
[2024-03-10] MEDS: LIDOCAINE HCL 5 % TOP OINT 35 GM TOP PRN (13:36)
--- NOTE | 2024-03-10 14:29 | DVHDSRES ---
Discharge Summary Date of Admission Resident Creating Document: EDMAR ALLAN RESIDENT Mar 09, 2024 at 20:22 Date of Discharge: Mar 10, 2024 Admitting Diagnosis Rectal pain and bleeding Labs/Diagnostic Data: Laboratory Results Test 03/10/24 13:35 03/10/24 11:50 03/10/24 07:00 03/10/24 02:40 White Blood Count 5.5 10^3/uL (4.4-10.8) Red Blood Count 4.06 10^6/uL (4.0-5.20) Hemoglobin 12.2 g/dL (12.2-16.2) Hematocrit 37.3 % (36.0-46.0) Mean Corpuscular Volume 91.8 fL (80.0-100.0) Mean Corpuscular Hemoglobin 29.9 pg (28.0-32.0) Mean Corpuscular Hemoglobin Concent 32.6 g/dL (32.0-36.0) Red Cell Distribution Width 13.3 % (11.8-14.3) Platelet Count 196 10^3/uL (140-450) Mean Platelet Volume 10.0 fL (6.9-10.8) Neutrophils (%) (Auto) 53.2 % (37.0-80.0) Lymphocytes (%) (Auto) 34.6 % (10.0-50.0) Monocytes (%) (Auto) 11.1 % (0.0-12.0) Eosinophils (%) (Auto) 0.9 % (0.0-7.0) Basophils (%) (Auto) 0.2 % (0.0-2.0) Neutrophils # (Auto) 2.9 10 ^3/uL (1.6-8.6) Lymphocytes # (Auto) 1.9 10 ^3/uL (0.4-5.4) Monocytes # (Auto) 0.6 10 ^3/uL (0-1.3) Eosinophils # (Auto) 0 10 ^3/uL (0-0.8) Basophils # (Auto) 0 10 ^3/uL (0-0.2) Nucleated Red Blood Cells 0.1 % Prothrombin Time 10.8 sec (9.3-11.8) Prothrombin Time INR 1.02 (0.9-1.15) Activated Partial Thromboplast Time 26.7 SEC (24.5-34.5) Sodium Level 139 mmol/L (136-145) Potassium Level 4.2 mmol/L (3.5-5.1) Chloride Level 111 mmol/L (98-107) Carbon Dioxide Level 23 mmol/L (20-31) Anion Gap 5 (5-15) Blood Urea Nitrogen 5 mg/dL (9-23) Creatinine 0.67 mg/dL (0.550-1.02) Glomerular Filtration Rate Calc 118 mL/min (>90) BUN/Creatinine Ratio 7.5 (10.0-20.0) Serum Glucose 81 mg/dL (74-106) Calcium Level 8.7 mg/dL (8.7-10.4) Total Bilirubin 0.8 mg/dL (0.2-1.0) Aspartate Amino Transferase (AST) 19 U/L (13-40) Alanine Aminotransferase (ALT) 24 U/L (7-40) Alkaline Phosphatase 81 U/L (46-116) Total Protein 6.8 g/dL (5.7-8.2) Albumin 3.9 g/dL (3.2-4.8) Beta HCG, Quantitative < 0.0 mIU/mL (1.5-4.2) Stool Occult Blood Negative (Negative) Urine Color Light-yellow (Yellow) Urine Clarity Clear (Clear) Urine pH 5.5 (5.0-9.0) Urine Specific [place] 1.035 (1.001-1.035) Urine Protein Trace (Negative) Urine Ketones Trace (Negative) Urine Blood Negative /uL (Negative) Urine Nitrite Negative (Negative) Urine Bilirubin Negative (Negative) Urine Urobilinogen Normal mg/dL (Negative) Urine Leukocyte Esterase Negative /uL (Negative) Urine RBC 2 /hpf (0 - 4) Urine WBC <1 /hpf (0 - 5) Urine Squamous Epithelial Cells Few /hpf (<5) Urine Bacteria Few /hpf (None Seen) Urine Mucus Few (None Seen) Urine Glucose Normal mg/dL (Normal) Urine Opiates Screen Neg (NEGATIVE) Urine Fentanyl Screen Neg (NEGATIVE) Urine Barbiturates Screen Neg (NEGATIVE) Urine Phencyclidine Screen Neg (NEGATIVE) Urine Amphetamines Screen Neg (NEGATIVE) Urine Benzodiazepines Screen Neg (NEGATIVE) Urine Cocaine Screen Neg (NEGATIVE) Urine Cannabinoids Screen Neg (NEGATIVE) Test 03/09/24 20:37 03/09/24 15:07 Thyroid Stimulating Hormone (TSH) 1.79 uIU/mL (0.55-4.78) Hemoglobin A1c 5.0 % A1C (<5.7) Lactic Acid Level 1.3 mmol/L (0.4-2.0) Iron Level 72 ug/dL (50-170) Total Iron Binding Capacity 432 ug/dL (250-425) Percent Iron Saturation 16.7 % (15-50) C-Reactive Protein High Sensitivity 0.50 mg/dL (<1.0) Lipase 40 U/L (12-53) Vitamin B12 Level 394 pg/mL (211-911) Vitamin D 25-Hydroxy 30.8 ng/mL (30.0-100) Other Laboratory Tests 03/10/24 11:50 Brief Hx & Hospital Course: This is a 33-year-old female patient with PMHx of gallbladder sludge, gastritis diagnosed 3 weeks back on endoscopy who presented to the ER with a chief complaint of rectal pain and rash bleeding per rectum for the past 1 week. Patient reports she has a long history of constipation for which she uses stool softeners, reports that over the past week she has been experiencing pain on defecation associated with fresh blood per rectum at the end of the stool. Says that the stool is not mixed with blood. Also reports a something comes out of the anus, but goes back on its own. She feels discomfort while sitting. Denies fever, chills, nausea, vomiting, diarrhea, abdominal pain, chest pain, shortness of breath, dysuria, frequency. During the hospital workup, CBC and BMP were stable. A rectal exam performed, rectal tone was intact, no hemorrhoids felt or seen. No fissure seen. Occult blood was negative. CT scan abdomen pelvis was completed which showed Hyperdense material noted within the anorectal canal. This may reflect pooled blood products or possible hemorrhoidal bleeding. Recommend further workup as clinically indicated. GI was consulted - Dr Nava recommend outpatient follow up for ongoing medical management possible colonoscopy and if symptoms persist consider elective hemorrhoidectomy. Recommended increased fluid and fiber intake, stool softeners, MiraLax 17 g Q as needed. Local anorectal wanted care with Proctocream or Anusol HC rectal suppositories. Xylocaine 5% apply per rectum q.8 hours as needed as needed. CT scan also showed right ovarian corpus luteal cyst. Following which ultrasound pelvis was completed which showed There is a corpus luteal cyst seen within the right ovary measuring 2 cm. Patient was advised to follow up with a repeat ultrasound within 3-6 months with primary care physician. Patient is clinically stable, hemodynamically stable and reports no active complaint. Therefore the patient is being discharged home recommendation follow up GI outpatient within 7 to 14 days. Also recommended her to follow up with discharge clinic appointment within 7 days and to follow up with the primary care physician within 7 days. Examination General: Obese, afebrile, palor, mucosae are moist Cardiovascular: Regular S1 and S2. No murmurs, gallops or rubs. No JVD elevation. No pedal edema Respiratory: Normal B/L air entry on room air. Clear lung sounds on auscultation Abdomen: Soft, nontender, nondistended, normoactive bowel sounds, no rebound tenderness, no organomegaly, no masses. A rectal exam performed, rectal tone was intact, no hemorrhoids felt or seen. No fissure seen. Occult blood was negative. Nurse Fred present during exam. Genitourinary: Deferred MSK/skin: Mobilizes 4 limbs. Skin is dry and warm Neurological: No motor, no sensitive deficits, normal speech. Pupils are isocoric and reactive. Psych/Mental Status: A/Ox4 Consults/Reason for consult GI consulted Condition at Discharge: Stable Final Diagnosis/Problems List Fresh red bleeding per rectum secondary to possible internal hemorrhoids Rectal pain secondary to above Ruled out anal fissure History of gallbladder sludge History of gastritis Vitamin-D insufficiency Discharge Disposition: Home Discharge Instruct/Medications Diet: See Comment Diet comment: soft mechanical diet Activity: Light activity Follow Up/Referral: Follow up with GI Dr Nava within 7-14 days for outpatient colonoscopy Follow up with primary care physician within 7-14 days Follow up with Discharge clinic within 7 - 14 days Medications: Increase fluid and fiber intake Stool softeners MiraLax 17 g p.o. as needed as needed Local anorectal hemorrhoidal care with Proctocream or Anusol HC rectal suppositories Xylocaine 5% apply per rectum q.8 hours as needed as needed Discharge Statement: "Patient was advised to return to the ER or call 911 if any headaches, dizziness, shortness of breath, chest pain, abdominal pain, bleeding, fevers, or worsening of medical condition. Patient was counseled about treatment plan, medications, possible side effects, patientverbalized understanding. All questions were answered to the best of my ability. This discharge took greater then 30 minutes in planning, reviewing documentation, counseling the patient, and discussing with other team members." ASSESSMENT ASSESSMENT Assessment Fresh red bleeding per rectum secondary to possible internal hemorrhoids Ruled out anal fissure EDMAR ALLAN RESIDENT Mar 10, 2024 14:29
[2024-03-10] MEDS ORDERED: DOCU-265 PO (17:45)
[2024-03-10] MEDS ORDERED: LID35TP TOP (17:45)
[2024-03-10] MEDS ORDERED: HYD25RS PR (17:45)
[2024-03-10] MEDS ORDERED: HYDROCORTISONE ACET 25 MG RECTAL SUPP PR SCH (22:00)
[2024-03-10] MEDS ORDERED: DOCUSATE SOD 100 MG CAP PO SCH (22:00)
== END 2024-03-10 18:18 | disposition home or self-care (01) | DRG 254 ==
LOC: ER 14:26 → OVERFLOW 20:22 → CENTRAL 20:44
PROVIDERS: ADMIT Student in an Organized Health Care Education/Training Program; ATTEND Student in an Organized Health Care Education/Training Program
DX: K64.8 Other hemorrhoids (principal); E55.9 Vitamin D deficiency, unspecified; K29.70 Gastritis, unspecified, without bleeding; K59.00 Constipation, unspecified; Z83.3 Family history of diabetes mellitus; Z79.899 Other long term (current) drug therapy
CPT/HCPCS: 36415; 74177; 76856; 80053; 80307; 81001; 82270; 82306; 82607; 83036; 83540; 83550; 83605; 83690; 84443; 84702; 85025; 85610; 85730; 86141; G0378; J2470